=== PATIENT | female | born 1990 | race Caucasian/White ===

== ENCOUNTER → 2020-06-01 11:37 | Outpatient (CLI) | payer OTHER, SELFPAY ==
[2020-06-02 12:38] LABS: Progesterone 9.1 ng/mL (.)
== END ==
DX: Z31.69 Encounter for other general counseling and advice on procreation (principal)
CPT/HCPCS: 36415; 84144

== ENCOUNTER → 2020-06-12 12:33 | Outpatient (CLI) | payer OTHER, SELFPAY | PROVIDERS: PCP Nurse Practitioner Family; Visit Provider Nurse Practitioner Family | DX: Z03.818 Encounter for observation for suspected exposure to other biological agents ruled out (principal) | CPT/HCPCS: U0003 ==

== ENCOUNTER → 2020-10-14 10:41 | Outpatient (CLI) | payer OTHER, SELFPAY ==
--- NOTE | 2020-10-14 10:46 | US_ITS ---
PROCEDURE: US BREAST RT COMPLETE CLINICAL INDICATION: RT BREAST MASS COMPARISON: No exams were available for comparison FINDINGS: There is a reported palpable abnormality at 12 o'clock. No sonographic abnormality evident at this region. No mass or cyst apparent within the right breast. IMPRESSION: Negative ultrasound the right breast. If there is indeed a palpable nodule then, would recommend a mammogram for further evaluation. Dictated by: Pipo Song MD 10/17/2020 17:18 Pipo Song MD in [place] 10/17/2020 17:18
== END ==
PROVIDERS: PCP Nurse Practitioner Family; Visit Provider Nurse Practitioner Family
DX: N63.10 Unspecified lump in the right breast, unspecified quadrant (principal)
CPT/HCPCS: 76641

== ENCOUNTER → 2020-10-19 13:04 | Outpatient (CLI) | payer OTHER, SELFPAY ==
--- NOTE | 2020-10-19 13:06 | MM_ITS ---
PROCEDURE: MM DIG MAMM DX UNILAT RT CAD Digital Breast Tomosynthesis Included CLINICAL INDICATION: RT BREAST MASS COMPARISON: No exams were available for comparison TECHNIQUE: Standard CC and MLO images and 3D Tomosynthesis was obtained. R2 CAD reviewed. FINDINGS: There is average fibroglandular tissue. No malignant appearing mass or malignant-appearing microcalcification is evident. There are scattered benign-appearing calcifications. A marker is placed in the upper inner aspect of the right breast at an area of palpable concern. No mass or architectural distortion at this region. IMPRESSION: BI-RAD Category: 1 Negative FOLLOW-UP: Follow-up recommended at age 35-40. There is an area of palpable concern in the upper inner aspect of the left breast. No sonographic or mammographic abnormalities are evident at this region. A negative mammogram and negative ultrasound does not exclude the possibility of underlying pathology if there is indeed a palpable nodule. (A letter has been sent to the patient regarding results of the study.) Dictated by: Pipo Song MD 10/22/2020 10:59 Pipo Song MD in [place] 10/22/2020 10:59
== END ==
PROVIDERS: PCP Nurse Practitioner Family; Visit Provider Nurse Practitioner Family
DX: N63.10 Unspecified lump in the right breast, unspecified quadrant (principal)
CPT/HCPCS: 77061; 77065; G0279